=== PATIENT | male | born 2000 | race Two or more races ===

== ENCOUNTER 2025-03-12 15:59 | Emergency (ER) | payer MEDICAID, OTHER ==
[~2025-03-12] VITALS: Ht 185.4 cm; Wt 151.1 kg
[2025-03-12 16:00] VITALS: BP 147/85; RESP 18; TEMP 98; O2SAT 96
--- NOTE | 2025-03-12 16:06 | ECG ---
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
[2025-03-12 16:18] LABS: Hematocrit 43.4 % (41.0-53.0); Hemoglobin 14.7 g/dL (13.5-17.5); Mean Corpuscular Hemoglobin 29.1 pg (28.0-32.0); Mean Corpuscular Volume 86.1 fL (80.0-100.0); Nucleated Red Blood Cells % 0.2 %
--- NOTE | 2025-03-12 16:52 | DVH ---
XY CHEST TWO VIEWS ROUTINE CLINICAL HISTORY: chest pain COMPARISON: None TECHNIQUE: Frontal and lateral view of the chest was obtained FINDINGS: Lines and Tubes: None Lungs: No focal consolidation. Pleura: No effusion. No pneumothorax. Cardiomediastinal contours: Unremarkable Bones: No acute osseous abnormality. IMPRESSION: 1. No acute cardiopulmonary disease.
[2025-03-12 17:04] VITALS: PULSE 58
--- NOTE | 2025-03-14 06:41 | ECG ---
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
== END 2025-03-12 19:54 | disposition left against medical advice (07) ==
LOC: ER 15:59
DX: R07.89 Other chest pain (principal); Z53.21 Procedure and treatment not carried out due to patient leaving prior to being seen by health care provider
CPT/HCPCS: 36415; 71046; 84484; 85025; 93005